=== PATIENT | male | born 1965 | race Caucasian/White ===

== ENCOUNTER 2018-03-13 12:10 | Inpatient (IN) | payer OTHER ==
[2018-03-13 12:20] VITALS: BMI 22.8
--- NOTE | 2018-03-13 15:02 | HP ---
CIWA Score Nausea/Vomitin Muscle Tremors: 3 Anxiety: 3 Agitation: 2 Paroxysmal Sweats: No Perspiration Orientation: 1-Uncertain about Date Tacttile Disturbances: 1-Very Mild Itch/Numbness Auditory Disturbances: 2-Mild Harshness/Frighten Visual Disturbances: 0-None Headache: 0-None Present CIWA-Ar Total Score: 15 - Admission Criteria [facility]ASAS Guidelines: Admission for Medically Managed Detox: Requires at least one of the followin. CIWA greater than 12 2. Seizures within the past 24 hours 3. Delirium tremens within the past 24 hours 4. Hallucinations within the past 24 hours 5. Acute intervention needed for co occurring medical disorder 6. Acute intervention needed for co occurring psychiatric disorder 7. Severe withdrawal that cannot be handled at a lower level of care (continued vomiting, continued diarrhea, abnormal vital signs) requiring intravenous medication and/or fluids 8. Admission ROS [facility] - [facility] Chief Complaint: PATIENT PRESENTS WITH ETOH WITHDRAWAL SX. Allergies/Adverse Reactions: Allergies Allergy/AdvReac Type Severity Reaction Status Date / Time No Known Allergies Allergy Verified 03/13/18 14:33 History of Present Illness: PATIENT PRESENTS WITH ETOH WITHDRAWAL SX. PATIENT HAS H/O OF SNIFFING COCAINE AND HEROIN USE BUT STATES HE DETOXED HIMSELF 5 DAYS AGO ON HIS OWN. UDS +BZO, PATIENT ISTOP NEGATIVE FOR RECENT CONTROLLED SUBSTANCES. PATIENT DENIES ANY RECENT DETOX ADMISSIONS/ER VISITS. STATES BZO MAY HAVE BEEN IN HEROIN. PATIENT DRINKING AT AGE 19. DRINKS (10) 12 OUNCE BEERS DAILY, LAST DRINK WAS EARLY THIS AM. STATES HE DRINKS BEER IN THE MORNING TO STEADY HIS NERVES. + H/O BLACKOUTS , FALLS AND SEIZURES. LAST SEIZURE YEARS AGO. PMH INCLUDES BIPOLAR DISORDER, SCHIZOPHRENIA, AND ASTHMA. DENIES SI/HI AND SUICIDE ATTEMPTS. Exam Limitations: No Limitations - Ebola screening Have you traveled outside of the country in the last 21 days: No Have you had contact with anyone from an Ebola affected area: No Have you been sick,other than usual withdrawal symptoms: No Do you have a fever: No - Review of Systems Constitutional: Night Sweats, Changes in sleep, Unexplained wgt Loss EENT: reports: No Symptoms Reported Respiratory: reports: No Symptoms reported Cardiac: reports: No Symptoms Reported GI: reports: Diarrhea, Nausea, Poor Fluid Intake, Abdominal cramping : reports: No Symptoms Reported Musculoskeletal: reports: Back Pain, Muscle Pain Integumentary: reports: Sweating Neuro: reports: Numbness, Seizure (LAST SEIZURE YEARS AGO), Tingling, Tremors Endocrine: reports: No Symptoms Reported Hematology: reports: No Symptoms Reported Psychiatric: reports: Anxious (FORGETFUL WITH DATE), Depressed Patient History - Patient Medical History Hx Anemia: No Hx Asthma: Yes Hx Chronic Obstructive Pulmonary Disease (COPD): No Hx Cancer: No Hx Cardiac Disorders: No Hx Congestive Heart Failure: No Hx Hypertension: No Hx Hypercholesterolemia: No Hx Pacemaker: No HX Cerebrovascular Accident: No Hx Seizures: Yes (r/t head trauma-last episode was in 2016) Hx Dementia: No Hx Diabetes: No Hx Gastrointestinal Disorders: No Hx Liver Disease: No Hx Genitourinary Disorders: No Hx Sexually Transmitted Disorders: Yes (gonorrhea in 1984) Hx Renal Disease (ESRD): No Hx Thyroid Disease: No Hx Human Immunodeficiency Virus (HIV): No Hx Hepatitis C: No Hx Depression: Yes Hx Suicide Attempt: No Hx Bipolar Disorder: Yes Hx Schizophrenia: Yes (paranoid schizophrenia) - Patient Surgical History Past Surgical History: Yes Hx Neurologic Surgery: No Hx Cataract Extraction: No Hx Cardiac Surgery: No Hx Lung Surgery: No Hx Breast Surgery: No Hx Breast Biopsy: No Hx Abdominal Surgery: No Hx Appendectomy: No Hx Cholecystectomy: No Hx Genitourinary Surgery: No Hx Orthopedic Surgery: Yes (fx, left elbow at age 10) Anesthesia Reaction: Yes - PPD History Previous Implant?: Yes Documented Results: Negative w/o proof PPD to be Administered?: Yes - Smoking Cessation Smoking history: Never smoked Have you smoked in the past 12 months: No Hx Chewing Tobacco Use: No Initiated information on smoking cessation: No - Substance & Tx. History Hx Alcohol Use: Yes Hx Substance Use: Yes Substance Use Type: Alcohol, Cocaine Hx Substance Use Treatment: Yes - Substances Abused Crack Route: Smoking Frequency: Daily Amount used: $50 Age of first use: 19 Date of Last Use: 03/11/18 Heroin Route: Inhalation Frequency: 3-6 times per week Amount used: 2-3 bags Age of first use: 19 Date of Last Use: 03/10/18 Alcohol-beer Route: Oral Frequency: Daily Amount used: 4 (40 OZ.)/2 pts. (whisky) Age of first use: 19 Date of Last Use: 03/11/18 Family Disease History - Family Disease History Family History: Denies Admission Physical Exam [facility] - Vital Signs Vital Signs: Vital Signs - 24 hr 03/13/18 12:17 Temperature 97.4 F L Pulse Rate 68 Respiratory 20 Rate Blood Pressure 116/70 - Physical General Appearance: Yes: No Apparent Distress, Appropriately Dressed, Tremorous , Sweating, Anxious HEENTM: Yes: EOMI, Hearing grossly Normal, Normocephalic, Normal Voice, BROOKE, Pharynx Normal Respiratory: Yes: Chest Non-Tender, Lungs Clear, Normal Breath Sounds, No Respiratory Distress, No Accessory Muscle Use Neck: Yes: No masses,lesions,Nodules, Supple, Trachea in good position Breast: Yes: Breast Exam Deferred Cardiology: Yes: Regular Rhythm, Regular Rate, S1, S2 Abdominal: Yes: Normal Bowel Sounds, Non Tender, Soft Genitourinary: Yes: Within Normal Limits Back: Yes: Muscle Spasm Musculoskeletal: Yes: full range of Motion, Back pain Extremities: Yes: Normal Range of Motion, Non-Tender, Tremors Neurological: Yes: pattern room attendant II-XII NML intact, Alert, Motor Strength 5/5, Normal Response, Depressed Affect Integumentary: Yes: Normal Color, Warm, Moist Lymphatic: Yes: Within Normal Limits - Diagnostic (1) Alcohol dependence with uncomplicated withdrawal Current Visit: Yes Status: Acute (2) Heroin use disorder, mild Current Visit: Yes Status: Chronic (3) Cocaine use Current Visit: Yes Status: Chronic (4) History of bipolar disorder Current Visit: Yes Status: Suspected Cleared for Admission [facility] - Detox or Rehab [facility] Level of Care: Medically Managed Detox Regimen/Protocol: Librium [facility] Breath Alcohol Content Breath Alcohol Content: 0 Urine Drug Screen - Results Drug Screen Negative: No Urine Drug Screen Results: BZO-Benzodiazepines
[2018-03-13] MEDS ORDERED: MENTHOL/PHENOL 1 EACH UD MM PRN (15:13)
[2018-03-13] MEDS ORDERED: MAGNESIUM CITRATE 300 ML BOTTLE PO PRN (15:13)
[2018-03-13] MEDS ORDERED: LOPERAMIDE HCL 2 MG CAPSULE PO PRN (15:13)
[2018-03-13] MEDS ORDERED: guaiFENesin/D-METHORPHAN HB 10 ML UNIT-DOSE CUPS PO PRN (15:13)
[2018-03-13] MEDS ORDERED: MAGNESIUM HYDROX 2400MG/30ML ORAL SUSPENSION 30 ML CUP PO PRN (15:13)
[2018-03-13] MEDS ORDERED: ACETAMINOPHEN 325 MG TABLET (FP) PO PRN (15:13)
[2018-03-13] MEDS ORDERED: P-EPHED 60MG/TRIPROLIDI 2.5MG TABLET PO PRN (15:13)
[2018-03-13] MEDS ORDERED: IBUPROFEN 400 MG TABLET (FP) PO PRN (15:13)
[2018-03-13] MEDS ORDERED: MAG HYDROX/AL HYDROX/SIMETH 30 ML UNIT-DOSE CUP PO PRN (15:13)
[2018-03-13] MEDS ORDERED: hydrOXYzine PAMOATE 50 MG CAPSULE (FP) PO PRN (15:13)
[2018-03-13] MEDS ORDERED: chlordiazePOXIDE HCL 25 MG CAPSULE PO PRN (15:16)
[2018-03-13] MEDS: chlordiazePOXIDE HCL 25 MG CAPSULE PO SCH ×2 (17:44→22:18)
[2018-03-13] MEDS: BACITRACIN 0.9 GM PACKET TP SCH (19:04)
[2018-03-13] MEDS: THIAMINE HCL 100 MG TABLET (FP) PO SCH (22:18)
[2018-03-13] MEDS: MELATONIN 5 MG TABLETS PO PRN (22:18)
[2018-03-14] MEDS: chlordiazePOXIDE HCL 25 MG CAPSULE PO SCH ×4 (05:27→22:12)
[2018-03-14] MEDS: PRENATAL VITAMINS W/ FOLIC ACID TABLET (FP) PO SCH (10:05)
[2018-03-14] MEDS: BACITRACIN 0.9 GM PACKET TP SCH (10:05)
--- NOTE | 2018-03-14 10:06 | EKG ---
Test Reason : Blood Pressure : / mmHG Vent. Rate : 061 BPM Atrial Rate : 061 BPM P-R Int : 138 ms QRS Dur : 096 ms QT Int : 416 ms P-R-T Axes : 064 058 047 degrees QTc Int : 418 ms NORMAL SINUS RHYTHM VOLTAGE CRITERIA FOR LEFT VENTRICULAR HYPERTROPHY ABNORMAL ECG NO PREVIOUS ECGS AVAILABLE Confirmed by Rivas Lucas MD ([id number]) on 03/14/2018 10:06:16 AM Referred By: Confirmed By:Rivas Lucas MD
[2018-03-14 10:22] LABS: HEMATOCRIT 41.4 % (35.4-49); HEMOGLOBIN 13.3 GM/dL (11.7-16.9); MCH 28.7 pg (25.7-33.7); MCHC 32.2 g/dl (32.0-35.9); MEAN CELL VOLUME 89.2 fl (80-96); MEAN PLT VOLUME 8.5 fl (7.5-11.1); PLATELET COUNT 484 K/MM3 (134-434); RBC 4.65 M/mm3 (4.00-5.60); RDW 14.3 % (11.9-15.9); WHITE BLOOD COUNT 10.3 K/mm3 (4.0-10.0)
[2018-03-14 10:26] LABS: ALBUMIN 3.6 g/dl (3.4-5.0); ALK PHOS 68 U/L (45-117); ANION GAP 8 MMOL/L (8-16); BILIRUBIN,TOTAL 0.2 mg/dL (0.2-1); BLOOD UREA NITROGEN 16 mg/dL (7-18); CALCIUM 8.8 mg/dL (8.5-10.1); CHLORIDE 104 mmol/L (98-107); CO2 25 mmol/L (21-32); GLUCOSE,RANDOM 93 mg/dL (74-106); POTASSIUM 4.4 mmol/L (3.5-5.1); SGOT/AST 19 U/L (15-37); SGPT/ALT 27 U/L (13-61); SODIUM 137 mmol/L (136-145); TOT PROT 7.3 g/dl (6.4-8.2)
--- NOTE | 2018-03-14 13:33 | PN ---
S CIWA - CIWA Score Nausea/Vomitin-No Nausea/No Vomiting Muscle Tremors: None Anxiety: 3 Agitation: 3 Paroxysmal Sweats: No Perspiration Orientation: 0-Oriented Tacttile Disturbances: 2-Mild Itch/Numbness/Burn Auditory Disturbances: 0-None Visual Disturbances: 0-None Headache: 2-Mild CIWA-Ar Total Score: 10 [facility] Progress Note (SOAP) Subjective: PATIENT C/O ANXIETY, RESTLESSNESS, ITCHING/BURNING TO FEET AND INTERMITTENT HEADACHE. Objective: 03/14/18 13:32 Vital Signs Temperature 96.1 F L 03/14/18 09:27 Pulse Rate 85 03/14/18 09:27 Respiratory Rate 16 03/14/18 09:27 Blood Pressure 102/67 03/14/18 09:27 O2 Sat by Pulse Oximetry (%) Laboratory Tests 03/14/18 03/14/18 03/14/18 05:45 05:45 05:45 WBC 10.3 H RBC 4.65 Hgb 13.3 Hct 41.4 MCV 89.2 MCH 28.7 MCHC 32.2 RDW 14.3 Plt Count 484 H MPV 8.5 Sodium 137 Potassium 4.4 Chloride 104 Carbon Dioxide 25 Anion Gap 8 BUN 16 Creatinine 1.0 Creat Clearance w eGFR > 60 Random Glucose 93 Calcium 8.8 Total Bilirubin 0.2 AST 19 ALT 27 Alkaline Phosphatase 68 Total Protein 7.3 Albumin 3.6 RPR Titer HIV 1&2 Antibody Screen Negative HIV P24 Antigen Negative 03/14/18 05:45 WBC RBC Hgb Hct MCV MCH MCHC RDW Plt Count MPV Sodium Potassium Chloride Carbon Dioxide Anion Gap BUN Creatinine Creat Clearance w eGFR Random Glucose Calcium Total Bilirubin AST ALT Alkaline Phosphatase Total Protein Albumin RPR Titer Nonreactive HIV 1&2 Antibody Screen HIV P24 Antigen PE: ALERT AND ORIENTED X 3 SKIN WARM AND DRY EXT FULL ROM, NO VISIBLE TREMORS AMB AD ZHANE NEURO CN [id number] GROSSLY INTACT Assessment: 03/14/18 13:33 WITHDRAWAL SX Plan: CONTINUE DETOX ENCOURAGE ORAL FLUIDS CONTINUE TO MONITOR CLINICALLY
--- NOTE | 2018-03-14 15:26 | CONSULT ---
[facility] Psychiatric Consult - Data Date of interview: 03/14/18 Admission source: [facility] Identifying data: Readmission to [facility] for this 52 y/o male undergoing detoxification treatment on [address] (alcohol, cocaine, heroin). Patient is single, no children, homeless, unemployed and supported on welfare ( SSI discontinued). Substance Abuse History: Discussed with the patient. Mr Dailey confirms current [facility] report as follows : Smoking history: Never smoked. Have you smoked in the past 12 months: No. Hx Chewing Tobacco Use: No. Initiated information on smoking cessation: No. - Substance & Tx. History. Hx Alcohol Use: Yes. Hx Substance Use: Yes. Substance Use Type: Alcohol, Cocaine. Hx Substance Use Treatment: Yes. - Substances Abused. Crack. Route: Smoking. Frequency: Daily. Amount used: $50. Age of first use: 19. Date of Last Use: 03/11/18. * * Heroin. Route: Inhalation. Frequency: 3-6 times per week. Amount used: 2-3 bags. Age of first use: 19. Date of Last Use: 03/10/18. Alcohol-beer. Route: Oral. Frequency: Daily. Amount used: 4 (40 OZ.)/2 pts. (whisky). Age of first use: 19. Date of Last Use: 03/11/18 Medical History: Remarkable for bronchial asthma, seizure episode (post head trauma) in 2016, orthosurgery for injury to eft elbow (age 10) and a history of treatment for gonorrhea. Psychiatric History: Patient admits to a history of multiple psychiatric hospitalizations ([facility], [facility]). Diagnosed with Schizophrenia. History of treatment with ziprazidone.Mr Dailey reports no current contact with psychiatrists for OPD care. Last saw a psychiatrist five years ago. " I get geodon from my medical doctor or when I am admitted to the hospital ". Patient denies history of suicide atttempts. Physical/Sexual Abuse/Trauma History: Patient denies. Additional Comment: Urine Drug Screen Results: BZO-Benzodiazepines. Noted. Mental Status Exam - Mental Status Exam Alert and Oriented to: Time, Place, Person Cognitive Function: Good Patient Appearance: Well Groomed (wearing a double metallic earring (left ear)) Mood: Nervous, Anxious Affect: Normal Range Patient Behavior: Fatigued, Talkative, Cooperative Speech Pattern: Clear, Appropriate Voice Loudness: Normal Thought Process: Goal Oriented Thought Disorder: Not Present Hallucinations: Denies Suicidal Ideation: Denies Homicidal Ideation: Denies Insight/Judgement: Poor Sleep: Well Appetite: Good Muscle strength/Tone: Normal Gait/Station: Normal Psychiatric Findings - Problem List ([place] 1, 2,3) (1) Alcohol dependence with uncomplicated withdrawal Current Visit: Yes Status: Acute (2) Cocaine dependence Current Visit: Yes Status: Chronic (3) Heroin abuse Current Visit: Yes Status: Chronic (4) Substance induced mood disorder Current Visit: Yes Status: Chronic (5) Schizoaffective disorder Current Visit: Yes Status: Suspected (6) Non-compliant patient Current Visit: Yes Status: Chronic - Initial Treatment Plan Initial Treatment Plan: Psychoeducation. Sleep hygiene. Detoxification. Motivational rounds. Social work team will address issue of restauration of SSI benefits. Support and reassurance. Resume geodon 20 mg po hs (patient's specific request). Side effects/benefits are discussed with the patient. Consent (verbal) granted to MD. Vora.
[2018-03-14] MEDS: MELATONIN 5 MG TABLETS PO PRN (22:12)
[2018-03-14] MEDS: THIAMINE HCL 100 MG TABLET (FP) PO SCH (22:12)
[2018-03-15] MEDS: chlordiazePOXIDE HCL 25 MG CAPSULE PO SCH ×2 (06:17→11:50)
--- NOTE | 2018-03-15 10:58 | PN ---
S CIWA - CIWA Score Nausea/Vomitin-Mild Nausea/No Vomiting Muscle Tremors: 3 Anxiety: 1-Mildly Anxious Agitation: 2 Paroxysmal Sweats: 1-Minimal Palms Moist Orientation: 1-Uncertain about Date Tacttile Disturbances: 0-None Auditory Disturbances: 0-None Visual Disturbances: 0-None Headache: 1-Very Mild CIWA-Ar Total Score: 10 S Progress Note (SOAP) Subjective: nausea tremor sweat restlessness Objective: 03/15/18 11:35 Vital Signs Temperature 96.6 F L 03/15/18 09:10 Pulse Rate 93 H 03/15/18 09:10 Respiratory Rate 13 03/15/18 09:10 Blood Pressure 122/82 03/15/18 09:10 O2 Sat by Pulse Oximetry (%) Laboratory Last Values WBC 10.3 K/mm3 (4.0-10.0) H 03/14/18 05:45 RBC 4.65 M/mm3 (4.00-5.60) 03/14/18 05:45 Hgb 13.3 GM/dL (11.7-16.9) 03/14/18 05:45 Hct 41.4 % (35.4-49) 03/14/18 05:45 MCV 89.2 fl (80-96) 03/14/18 05:45 MCH 28.7 pg (25.7-33.7) 03/14/18 05:45 MCHC 32.2 g/dl (32.0-35.9) 03/14/18 05:45 RDW 14.3 % (11.9-15.9) 03/14/18 05:45 Plt Count 484 K/MM3 (134-434) H 03/14/18 05:45 MPV 8.5 fl (7.5-11.1) 03/14/18 05:45 Sodium 137 mmol/L (136-145) 03/14/18 05:45 Potassium 4.4 mmol/L (3.5-5.1) 03/14/18 05:45 Chloride 104 mmol/L (98-107) 03/14/18 05:45 Carbon Dioxide 25 mmol/L (21-32) 03/14/18 05:45 Anion Gap 8 MMOL/L (8-16) 03/14/18 05:45 BUN 16 mg/dL (7-18) 03/14/18 05:45 Creatinine 1.0 mg/dL (0.55-1.3) 03/14/18 05:45 Creat Clearance w eGFR > 60 (>60) 03/14/18 05:45 Random Glucose 93 mg/dL (74-106) 03/14/18 05:45 Calcium 8.8 mg/dL (8.5-10.1) 03/14/18 05:45 Total Bilirubin 0.2 mg/dL (0.2-1) 03/14/18 05:45 AST 19 U/L (15-37) 03/14/18 05:45 ALT 27 U/L (13-61) 03/14/18 05:45 Alkaline Phosphatase 68 U/L (45-117) 03/14/18 05:45 Total Protein 7.3 g/dl (6.4-8.2) 03/14/18 05:45 Albumin 3.6 g/dl (3.4-5.0) 03/14/18 05:45 RPR Titer Nonreactive (NONREACTIVE) 03/14/18 05:45 HIV 1&2 Antibody Screen Negative 03/14/18 05:45 HIV P24 Antigen Negative 03/14/18 05:45 lab noted Assessment: 03/15/18 10:57 withdrawal sx alcohol induced nausea Plan: continue detox zofran 4 mg sl x 1 discontinue motrin begin aspirin
[2018-03-15] MEDS ORDERED: ONDANSETRON *ODT* 4 MG TABLET SL ONE (11:30)
[2018-03-15] MEDS: BACITRACIN 0.9 GM PACKET TP SCH (12:13)
[2018-03-15] MEDS: PRENATAL VITAMINS W/ FOLIC ACID TABLET (FP) PO SCH (12:13)
[2018-03-15] MEDS: ZIPRASIDONE 20 MG CAPSULE PO SCH (12:15)
[2018-03-15] MEDS: ASPIRIN 81 MG CHEWABLE TABLETS PO SCH (12:15)
[2018-03-15] MEDS: chlordiazePOXIDE 5 MG CAPSULE PO SCH ×2 (17:12→22:22)
[2018-03-15] MEDS: MELATONIN 5 MG TABLETS PO PRN (22:22)
[2018-03-15] MEDS: THIAMINE HCL 100 MG TABLET (FP) PO SCH (22:22)
[2018-03-16] MEDS: chlordiazePOXIDE 5 MG CAPSULE PO SCH ×2 (05:39→10:27)
[2018-03-16] MEDS: BACITRACIN 0.9 GM PACKET TP SCH (10:26)
[2018-03-16] MEDS: PRENATAL VITAMINS W/ FOLIC ACID TABLET (FP) PO SCH (10:26)
[2018-03-16] MEDS: ASPIRIN 81 MG CHEWABLE TABLETS PO SCH (10:26)
[2018-03-16] MEDS: ZIPRASIDONE 20 MG CAPSULE PO SCH (10:26)
--- NOTE | 2018-03-16 15:21 | PN ---
[facility] Progress Note (SOAP) Subjective: feeling better less sweat little tremor mild gi distress calmly discuss aftercare with staff Objective: 03/16/18 15:20 Vital Signs Temperature 98.3 F 03/16/18 13:10 Pulse Rate 101 H 03/16/18 13:10 Respiratory Rate 18 03/16/18 13:10 Blood Pressure 128/78 03/16/18 13:10 O2 Sat by Pulse Oximetry (%) Laboratory Last Values WBC 10.3 K/mm3 (4.0-10.0) H 03/14/18 05:45 RBC 4.65 M/mm3 (4.00-5.60) 03/14/18 05:45 Hgb 13.3 GM/dL (11.7-16.9) 03/14/18 05:45 Hct 41.4 % (35.4-49) 03/14/18 05:45 MCV 89.2 fl (80-96) 03/14/18 05:45 MCH 28.7 pg (25.7-33.7) 03/14/18 05:45 MCHC 32.2 g/dl (32.0-35.9) 03/14/18 05:45 RDW 14.3 % (11.9-15.9) 03/14/18 05:45 Plt Count 484 K/MM3 (134-434) H 03/14/18 05:45 MPV 8.5 fl (7.5-11.1) 03/14/18 05:45 Sodium 137 mmol/L (136-145) 03/14/18 05:45 Potassium 4.4 mmol/L (3.5-5.1) 03/14/18 05:45 Chloride 104 mmol/L (98-107) 03/14/18 05:45 Carbon Dioxide 25 mmol/L (21-32) 03/14/18 05:45 Anion Gap 8 MMOL/L (8-16) 03/14/18 05:45 BUN 16 mg/dL (7-18) 03/14/18 05:45 Creatinine 1.0 mg/dL (0.55-1.3) 03/14/18 05:45 Creat Clearance w eGFR > 60 (>60) 03/14/18 05:45 Random Glucose 93 mg/dL (74-106) 03/14/18 05:45 Calcium 8.8 mg/dL (8.5-10.1) 03/14/18 05:45 Total Bilirubin 0.2 mg/dL (0.2-1) 03/14/18 05:45 AST 19 U/L (15-37) 03/14/18 05:45 ALT 27 U/L (13-61) 03/14/18 05:45 Alkaline Phosphatase 68 U/L (45-117) 03/14/18 05:45 Total Protein 7.3 g/dl (6.4-8.2) 03/14/18 05:45 Albumin 3.6 g/dl (3.4-5.0) 03/14/18 05:45 RPR Titer Nonreactive (NONREACTIVE) 03/14/18 05:45 HIV 1&2 Antibody Screen Negative 03/14/18 05:45 HIV P24 Antigen Negative 03/14/18 05:45 lab noted Assessment: 03/16/18 15:20 mild withdrawal sx Plan: continue detox
[2018-03-16] MEDS: chlordiazePOXIDE HCL 10 MG CAPSULE PO SCH ×2 (17:34→22:03)
[2018-03-16] MEDS: MELATONIN 5 MG TABLETS PO PRN (22:03)
[2018-03-16] MEDS: THIAMINE HCL 100 MG TABLET (FP) PO SCH (22:03)
[2018-03-17] MEDS: chlordiazePOXIDE HCL 10 MG CAPSULE PO SCH ×2 (05:55→10:13)
[2018-03-17 06:31] VITALS: BP 127/80; PULSE 84; TEMP 97.8
[2018-03-17] MEDS: ASPIRIN 81 MG CHEWABLE TABLETS PO SCH (09:50)
[2018-03-17] MEDS: PRENATAL VITAMINS W/ FOLIC ACID TABLET (FP) PO SCH (09:51)
[2018-03-17] MEDS: ZIPRASIDONE 20 MG CAPSULE PO SCH (09:53)
[2018-03-17] MEDS: BACITRACIN 0.9 GM PACKET TP SCH (09:53)
--- NOTE | 2018-03-17 15:17 | DS ---
[facility] Detox Discharge Summary Admission Date: 03/13/18 Discharge Date: 03/17/18 - History Present History: Alcohol Dependence, Cocaine Dependence Pertinent Past History: PATIENT PRESENTED WITH ETOH WITHDRAWAL SX. Pt completed alcohol detox protocol. Pt is discharged and will follow up in an outpt treatment program. Pt does not need any medications at discharge - Physical Exam Results Vital Signs: Vital Signs Temperature 97.8 F 03/17/18 06:31 Pulse Rate 84 03/17/18 06:31 Respiratory Rate 18 03/17/18 06:31 Blood Pressure 127/80 03/17/18 06:31 O2 Sat by Pulse Oximetry (%) - Treatment Hospital Course: Detox Protocol Followed, Detoxed Safely, Responded well, Discharged Condition Good - Medication Discharge Medications: Ambulatory Orders Ziprasidone [Geodon -] 20 mg PO DAILY 03/13/18 - AMA Did Patient Leave Against Medical Advice: No
== END 2018-03-17 10:49 | disposition home or self-care (01) | DRG 773 ==
LOC: YASAS 12:10 → Y3N 15:41
PROC: HZ2ZZZZ Detoxification Services for Substance Abuse Treatment (ICD-10-PCS; principal; 2018-03-13)
DX: F10.230 Alcohol dependence with withdrawal, uncomplicated (principal); F14.20 Cocaine dependence, uncomplicated; F11.10 Opioid abuse, uncomplicated; F19.24 Other psychoactive substance dependence with psychoactive substance-induced mood disorder; F25.9 Schizoaffective disorder, unspecified; J45.909 Unspecified asthma, uncomplicated; Z87.438 Personal history of other diseases of male genital organs; Z86.69 Personal history of other diseases of the nervous system and sense organs; Z91.19 Patient's noncompliance with other medical treatment and regimen
CPT/HCPCS: 36415; 80053; 85027; 86593; 87389; 93005; 93010; Q0162

== ENCOUNTER 2021-01-13 10:21 | Inpatient (IN) | payer OTHER ==
[2021-01-13] MEDS ORDERED: cloNIDine HCL 0.1 MG TABLET PO PRN (10:59)
[2021-01-13] MEDS ORDERED: ACETAMINOPHEN 325 MG TABLET (FP) PO PRN ×2 (10:59)
[2021-01-13] MEDS ORDERED: MAGNESIUM HYDROX 2400MG/30ML ORAL SUSPENSION 30 ML CUP PO PRN (10:59)
[2021-01-13] MEDS ORDERED: BISMUTH SUBSALICYLATE 524 MG/30 ML PO PRN (10:59)
[2021-01-13] MEDS ORDERED: IBUPROFEN 400 MG TABLET (FP) PO PRN (10:59)
[2021-01-13] MEDS ORDERED: MAGNESIUM CITRATE 300 ML BOTTLE PO PRN (10:59)
[2021-01-13] MEDS ORDERED: MENTHOL/PHENOL 1 EACH UD MM PRN (10:59)
[2021-01-13] MEDS ORDERED: MAG HYDROX/AL HYDROX/SIMETH 30 ML UNIT-DOSE CUP PO PRN (10:59)
[2021-01-13] MEDS ORDERED: ONDANSETRON *ODT* 4 MG TABLET SL PRN (10:59)
[2021-01-13] MEDS ORDERED: methaDONE HCL 10 MG TABLET (FOR DETOX USE ONLY) PO ONE ×2 (11:30→17:00)
[2021-01-13 11:44] VITALS: BMI 24.2
[2021-01-13 14:49] LABS: HEMATOCRIT 42.2 % (35.4-49); HEMOGLOBIN 14.2 GM/dL (11.7-16.9); MCH 29.6 pg (25.7-33.7); MCHC 33.7 g/dl (32.0-35.9); MEAN CELL VOLUME 87.9 fl (80-96); MEAN PLT VOLUME 8.6 fl (7.5-11.1); PLATELET COUNT 295 10^3/uL (134-434); RDW 14.4 % (11.9-15.9); WHITE BLOOD COUNT 4.5 K/mm3 (4.0-10.0)
[2021-01-13 14:59] LABS: ALBUMIN 3.6 g/dl (3.4-5.0); BLOOD UREA NITROGEN 16.9 mg/dL (7-18)
[2021-01-13 15:04] LABS: BILIRUBIN,TOTAL 0.6 mg/dL (0.2-1); TOT PROT 6.8 g/dl (6.4-8.2)
[2021-01-13] MEDS ORDERED: methaDONE HCL 10 MG TABLET PO SCH (15:30)
[2021-01-13] MEDS: hydrOXYzine PAMOATE 25 MG CAPSULE (FP) PO SCH ×3 (15:59→22:19)
[2021-01-13] MEDS: PRENATAL VITAMINS W/ FOLIC ACID TABLET (FP) PO SCH (16:00)
[2021-01-13] MEDS: MELATONIN 5 MG TABLETS PO SCH (22:19)
[2021-01-13] MEDS: METHOCARBAMOL 500 MG TABLET PO PRN (22:19)
[2021-01-13] MEDS: THIAMINE HCL 100 MG TABLET (FP) PO SCH (22:19)
[2021-01-14] MEDS ORDERED: methaDONE HCL 10 MG TABLET (FOR DETOX USE ONLY) PO ONE (10:00)
[2021-01-14] MEDS: PRENATAL VITAMINS W/ FOLIC ACID TABLET (FP) PO SCH (10:25)
[2021-01-14] MEDS: MELATONIN 5 MG TABLETS PO SCH (22:24)
[2021-01-14] MEDS: THIAMINE HCL 100 MG TABLET (FP) PO SCH (22:24)
[2021-01-15] MEDS ORDERED: methaDONE HCL 10 MG TABLET (FOR DETOX USE ONLY) PO ONE ×2 (10:00)
[2021-01-15] MEDS: PRENATAL VITAMINS W/ FOLIC ACID TABLET (FP) PO SCH (10:10)
[2021-01-15] MEDS: METHOCARBAMOL 500 MG TABLET PO PRN (18:04)
[2021-01-15] MEDS: MELATONIN 5 MG TABLETS PO SCH (22:11)
[2021-01-15] MEDS: THIAMINE HCL 100 MG TABLET (FP) PO SCH (22:11)
[2021-01-16] MEDS ORDERED: methaDONE HCL 10 MG TABLET (FOR DETOX USE ONLY) ONE (09:43)
[2021-01-16] MEDS: PRENATAL VITAMINS W/ FOLIC ACID TABLET (FP) PO SCH (10:14)
[2021-01-16] MEDS: METHOCARBAMOL 500 MG TABLET PO PRN ×2 (10:14→22:09)
[2021-01-16] MEDS: MELATONIN 5 MG TABLETS PO SCH (22:09)
[2021-01-16] MEDS: THIAMINE HCL 100 MG TABLET (FP) PO SCH (22:09)
[2021-01-17] MEDS ORDERED: methaDONE HCL 10 MG TABLET (FOR DETOX USE ONLY) PO ONE (10:00)
[2021-01-17] MEDS: PRENATAL VITAMINS W/ FOLIC ACID TABLET (FP) PO SCH (10:14)
[2021-01-17] MEDS: THIAMINE HCL 100 MG TABLET (FP) PO SCH (22:05)
[2021-01-17] MEDS: MELATONIN 5 MG TABLETS PO SCH (22:05)
[2021-01-17] MEDS: METHOCARBAMOL 500 MG TABLET PO PRN (22:06)
[2021-01-18 06:37] VITALS: PULSE 76
[2021-01-18 09:10] VITALS: BP 138/86; TEMP 96.9
== END 2021-01-18 09:10 | disposition home or self-care (01) | DRG 773 ==
LOC: YASAS 10:21 → Y3N 12:57
PROVIDERS: ADMIT Allergy & Immunology; ATTEND Allergy & Immunology
PROC: HZ2ZZZZ Detoxification Services for Substance Abuse Treatment (ICD-10-PCS; principal; 2021-01-13)
DX: F11.23 Opioid dependence with withdrawal (principal); F10.230 Alcohol dependence with withdrawal, uncomplicated; F14.20 Cocaine dependence, uncomplicated; F20.0 Paranoid schizophrenia; F19.282 Other psychoactive substance dependence with psychoactive substance-induced sleep disorder; F90.9 Attention-deficit hyperactivity disorder, unspecified type; J45.909 Unspecified asthma, uncomplicated; R56.1 Post traumatic seizures; Z87.828 Personal history of other (healed) physical injury and trauma; Z86.19 Personal history of other infectious and parasitic diseases; Z91.410 Personal history of adult physical and sexual abuse; Z59.00 Homelessness unspecified; Z56.0 Unemployment, unspecified
CPT/HCPCS: 36415; 80053; 82947; 85027; 86780; 93005; 93010; C9803; U0003; U0005

== ENCOUNTER 2023-08-29 10:48 | Inpatient (IN) | payer OTHER ==
[2023-08-29 12:07] VITALS: BMI 25.8
[2023-08-29] MEDS ORDERED: ONDANSETRON *ODT* 4 MG TABLET SL PRN (12:25)
[2023-08-29] MEDS ORDERED: MAG HYDROX/AL HYDROX/SIMETH 30 ML UNIT-DOSE CUP PO PRN (12:25)
[2023-08-29] MEDS ORDERED: BISMUTH SUBSALICYLATE 262 MG/15 ML BTL PO PRN (12:25)
[2023-08-29] MEDS ORDERED: hydrOXYzine PAMOATE 25 MG CAPSULE (FP) PO PRN (12:25)
[2023-08-29] MEDS ORDERED: NICOTINE POLACRILEX 2 MG LOZENGE BC PRN (12:25)
[2023-08-29] MEDS ORDERED: POLYETHYLENE GLYCOL (HEALTHYLAX) 3350 17 GM PACKET PO PRN (12:25)
[2023-08-29] MEDS ORDERED: METHOCARBAMOL 500 MG TABLET PO PRN (12:25)
[2023-08-29] MEDS ORDERED: BENZOCAINE/MENTHOL (CHLORASEPTIC ) LOZENGE MM PRN (12:25)
[2023-08-29] MEDS ORDERED: LOPERAMIDE HCL 2 MG CAPSULE PO PRN (12:25)
[2023-08-29] MEDS ORDERED: NALOXONE (NARCAN) HCL 4 MG/0.1 ML SPRAY NS PRN (12:25)
[2023-08-29] MEDS ORDERED: MAGNESIUM HYDROX 2400MG/30ML ORAL SUSPENSION 30 ML CUP PO PRN (12:25)
[2023-08-29] MEDS ORDERED: ACETAMINOPHEN 325 MG TABLET (FP) PO PRN (12:25)
[2023-08-29] MEDS ORDERED: guaiFENesin 600 MG TABLET.ER (FP) PO PRN (12:25)
[2023-08-29] MEDS ORDERED: NICOTINE POLACRILEX 2 MG GUM BUC PRN (12:25)
[2023-08-29] MEDS ORDERED: P-EPHED 60MG/TRIPROLIDI 2.5MG TABLET PO PRN (12:25)
[2023-08-29] MEDS ORDERED: IBUPROFEN 400 MG TABLET (FP) PO PRN (12:25)
[2023-08-29] MEDS ORDERED: DICYCLOMINE HCL 10 MG CAPSULE PO PRN (12:25)
[2023-08-29] MEDS ORDERED: NALOXONE HCL 0.4 MG/ML VIAL IM PRN (12:25)
[2023-08-29] MEDS ORDERED: IBUPROFEN 600 MG TABLET (FP) PO PRN (12:25)
[2023-08-29] MEDS ORDERED: BENZONATATE 200 MG CAPSULE PO PRN (12:25)
[2023-08-29] MEDS: THIAMINE 100 MG TABLET PO SCH (21:47)
[2023-08-29] MEDS: MELATONIN 5 MG TABLETS PO SCH (21:48)
[2023-08-30] MEDS: PRENATAL VITAMINS W/ FOLIC ACID TABLET (FP) PO SCH (09:45)
[2023-08-30] MEDS ORDERED: ALBUTEROL SO4 HFA INHALER IH PRN ×2 (10:34→12:57)
[2023-08-30] MEDS: methaDONE HCL 10 MG TABLET (FOR DETOX USE ONLY) PO ONE (11:15)
[2023-08-30] MEDS: cloNIDine HCL 0.1 MG TABLET PO PRN (11:19)
[2023-08-30] MEDS: BICTEGRAV/EMTRICIT/TENOFOV (BIKTARVY) 50-200-25 MG TABLET PO SCH (11:19)
[2023-08-30] MEDS: levETIRAcetam 500 MG TABLET (FP) PO SCH (11:19)
[2023-08-30 12:00] LABS: POTASSIUM 4.1 mmol/L (3.5-5.1)
[2023-08-30 12:07] LABS: ALBUMIN 3.6 g/dl (3.4-5.0)
[2023-08-30 12:10] LABS: CREATININE 0.8 mg/dL (0.55-1.3)
[2023-08-30 12:11] LABS: BILIRUBIN,TOTAL 0.5 mg/dL (0.2-1); TOT PROT 7.2 g/dl (6.4-8.2)
[2023-08-30 12:18] LABS: HEMATOCRIT 40.1 % (35.4-49); HEMOGLOBIN 13.3 GM/dL (11.7-16.9); MCH 30.2 pg (25.7-33.7); MCHC 33.2 g/dl (32.0-35.9); MEAN PLT VOLUME 9.1 fl (7.5-11.1); PLATELET COUNT 309 10^3/uL (134-434); RDW 13.8 % (11.9-15.9); WHITE BLOOD COUNT 6.1 K/mm3 (4.0-10.0)
[2023-08-30 13:05] VITALS: TEMP 98
[2023-08-30 15:30] VITALS: BP 124/77; PULSE 74; RESP 14
[2023-08-30] MEDS ORDERED: LACTULOSE 20 GM/30 ML UDC (FOR ORAL USE ONLY) PO SCH (22:00)
[2023-09-01] MEDS ORDERED: methaDONE HCL 10 MG TABLET (FOR DETOX USE ONLY) PO ONE (10:00)
[2023-09-03] MEDS ORDERED: methaDONE HCL 10 MG TABLET (FOR DETOX USE ONLY) PO ONE (10:00)
== END 2023-08-30 23:09 | disposition short-term general hospital (02) | DRG 773 ==
LOC: YASAS 10:48 → Y3N 12:54
PROVIDERS: ADMIT Allergy & Immunology; ATTEND Surgery
PROC: HZ2ZZZZ Detoxification Services for Substance Abuse Treatment (ICD-10-PCS; principal; 2023-08-29)
DX: F11.23 Opioid dependence with withdrawal (principal); F14.20 Cocaine dependence, uncomplicated; B20 Human immunodeficiency virus [HIV] disease; E72.20 Disorder of urea cycle metabolism, unspecified; R41.82 Altered mental status, unspecified; Z86.19 Personal history of other infectious and parasitic diseases; Z86.69 Personal history of other diseases of the nervous system and sense organs; Z87.820 Personal history of traumatic brain injury
CPT/HCPCS: 36415; 80053; 80305; 80307; 82140; 85027; 86593; 86780; 93005; 93010

== ENCOUNTER 2023-08-30 16:04 | Observation (INO) | payer OTHER ==
[2023-08-30 17:35] LABS: BASO % 0.7 % (0-2.0); EOS % 1.7 % (0-4.5); HEMATOCRIT 36.7 % (35.4-49); HEMOGLOBIN 12.1 GM/dL (11.7-16.9); LYMPH % 16.7 % (8-40); MCH 30.1 pg (25.7-33.7); MEAN CELL VOLUME 91.1 fl (80-96); MEAN PLT VOLUME 8.1 fl (7.5-11.1); NEUT % 73.9 % (42.8-82.8); PLATELET COUNT 303 10^3/uL (134-434); RBC 4.03 M/mm3 (4.00-5.60); RDW 13.9 % (11.9-15.9); WHITE BLOOD COUNT 8.2 K/mm3 (4.0-10.0)
[2023-08-30 18:00] LABS: CHLORIDE 106 mmol/L (98-107); POTASSIUM 4.1 mmol/L (3.5-5.1); SODIUM 138 mmol/L (136-145)
[2023-08-30 18:03] LABS: ALBUMIN 3.3 g/dl (3.4-5.0); CALCIUM 8.9 mg/dL (8.5-10.1)
[2023-08-30 18:04] LABS: ANION GAP 4 mmol/L (4-13); BLOOD UREA NITROGEN 20.1 mg/dL (7-18); CO2 29 mmol/L (21-32); GLUCOSE,RANDOM 98 mg/dL (74-106)
[2023-08-30 18:06] LABS: CREATININE 0.9 mg/dL (0.55-1.3)
[2023-08-30 18:07] LABS: SGOT/AST 18 U/L (15-37); SGPT/ALT 57 U/L (13-61)
[2023-08-30 18:08] LABS: BILIRUBIN,TOTAL 0.2 mg/dL (0.2-1); TOT PROT 6.6 g/dl (6.4-8.2)
[2023-08-30 18:09] LABS: ALK PHOS 83 U/L (45-117)
[2023-08-30] MEDS: LACTATED RINGERS SOLUTION 1,000 ML/1,000 ML INFUS.BAG IV STA (18:44)
[2023-08-30] MEDS ORDERED: BENZONATATE 200 MG CAPSULE PO PRN (21:23)
[2023-08-30] MEDS ORDERED: MAG HYDROX/AL HYDROX/SIMETH 30 ML UNIT-DOSE CUP PO PRN (21:23)
[2023-08-30] MEDS ORDERED: POLYETHYLENE GLYCOL (HEALTHYLAX) 3350 17 GM PACKET PO PRN (21:23)
[2023-08-30] MEDS ORDERED: MAGNESIUM HYDROX 2400MG/30ML ORAL SUSPENSION 30 ML CUP PO PRN (21:23)
[2023-08-30] MEDS ORDERED: METHOCARBAMOL 500 MG TABLET PO PRN (21:23)
[2023-08-30] MEDS ORDERED: ACETAMINOPHEN 325 MG TABLET (FP) PO PRN (21:23)
[2023-08-30] MEDS ORDERED: NALOXONE HCL 0.4 MG/ML VIAL IM PRN (21:23)
[2023-08-30] MEDS ORDERED: IBUPROFEN 600 MG TABLET (FP) PO PRN (21:23)
[2023-08-30] MEDS ORDERED: hydrOXYzine PAMOATE 25 MG CAPSULE (FP) PO PRN (21:23)
[2023-08-30] MEDS ORDERED: ONDANSETRON *ODT* 4 MG TABLET SL PRN (21:23)
[2023-08-30] MEDS ORDERED: LOPERAMIDE HCL 2 MG CAPSULE PO PRN (21:23)
[2023-08-30] MEDS ORDERED: IBUPROFEN 400 MG TABLET (FP) PO PRN (21:23)
[2023-08-30] MEDS ORDERED: BISMUTH SUBSALICYLATE 524 MG/30 ML PO PRN (21:23)
[2023-08-30] MEDS ORDERED: DICYCLOMINE HCL 10 MG CAPSULE PO PRN (21:23)
[2023-08-30] MEDS ORDERED: guaiFENesin 600 MG TABLET.ER (FP) PO PRN (21:23)
[2023-08-30] MEDS ORDERED: BENZOCAINE/MENTHOL (CHLORASEPTIC ) LOZENGE MM PRN (21:23)
[2023-08-30] MEDS ORDERED: ALBUTEROL SO4 HFA INHALER IH PRN (21:39)
[2023-08-30] MEDS ORDERED: METOCLOPRAMIDE HCL INJECTION 10 MG/2 ML VIAL IM PRN (21:52)
[2023-08-30] MEDS ORDERED: hydrOXYzine HCL 50 MG/ML VIAL IM ONE (21:57)
[2023-08-30] MEDS: hydrOXYzine HCL 50 MG/ML VIAL IM ONE (22:08)
[2023-08-30] MEDS: METOCLOPRAMIDE HCL INJECTION 10 MG/2 ML VIAL IM ONE (22:08)
[2023-08-30] MEDS: BICTEGRAV/EMTRICIT/TENOFOV (BIKTARVY) 50-200-25 MG TABLET PO SCH (22:08)
[2023-08-30] MEDS ORDERED: MELATONIN 5 MG TABLETS ONE (22:10)
[2023-08-30] MEDS: THIAMINE 100 MG TABLET PO SCH (22:25)
[2023-08-30] MEDS: levETIRAcetam 500 MG TABLET (FP) PO SCH (22:25)
[2023-08-30] MEDS: MELATONIN 5 MG TABLETS PO SCH (22:25)
[2023-08-30] MEDS: hydrOXYzine HCL 50 MG/ML VIAL IM PRN (22:45)
[2023-08-31 05:01] VITALS: BMI 25.4
[2023-08-31] MEDS ORDERED: ASPIRIN 81 MG CHEWABLE TABLETS ONE (05:18)
[2023-08-31] MEDS: ASPIRIN 81 MG CHEWABLE TABLETS PO ONE (05:19)
[2023-08-31 07:23] LABS: HEMATOCRIT 39.7 % (35.4-49); HEMOGLOBIN 13.2 GM/dL (11.7-16.9); MCH 30.4 pg (25.7-33.7); MCHC 33.3 g/dl (32.0-35.9); MEAN CELL VOLUME 91.2 fl (80-96); MEAN PLT VOLUME 8.1 fl (7.5-11.1); PLATELET COUNT 306 10^3/uL (134-434); RBC 4.35 M/mm3 (4.00-5.60); RDW 13.8 % (11.9-15.9); WHITE BLOOD COUNT 8.3 K/mm3 (4.0-10.0)
[2023-08-31 07:52] LABS: CHOLESTEROL 171 mg/dL (50-200)
[2023-08-31 07:53] LABS: LDL CHOLESTEROL (ONLY SJRH) 103 mg/dL (5-100)
[2023-08-31 07:54] LABS: POTASSIUM 3.9 mmol/L (3.5-5.1)
[2023-08-31 07:55] LABS: HDL CHOLESTEROL 55 mg/dL (40-60)
[2023-08-31 08:10] LABS: CALCIUM 9.3 mg/dL (8.5-10.1)
[2023-08-31 08:11] LABS: ALBUMIN 3.6 g/dl (3.4-5.0); BLOOD UREA NITROGEN 21.2 mg/dL (7-18); MAGNESIUM 2.1 mg/dL (1.8-2.4)
[2023-08-31 08:14] LABS: CREATININE 0.8 mg/dL (0.55-1.3); PHOSPHOROUS 3.4 mg/dL (2.5-4.9)
[2023-08-31 08:16] LABS: TOT PROT 6.9 g/dl (6.4-8.2)
[2023-08-31 08:17] LABS: BILIRUBIN,TOTAL 0.4 mg/dL (0.2-1)
[2023-08-31] MEDS: ASPIRIN 81 MG CHEWABLE TABLETS PO SCH (10:37)
[2023-08-31] MEDS: methaDONE HCL 10 MG TABLET PO ONE (10:38)
[2023-08-31] MEDS: ENOXAPARIN NA (PORCINE) 40 MG/0.4 ML DISP.SYRIN SQ SCH (10:39)
[2023-08-31] MEDS: cloNIDine HCL 0.1 MG TABLET PO PRN (10:40)
[2023-08-31] MEDS: PRENATAL VITAMINS W/ FOLIC ACID TABLET (FP) PO SCH (12:05)
[2023-08-31] MEDS: LORazepam 1 MG TABLET PO ONE (12:07)
[2023-08-31] MEDS ORDERED: guaiFENesin 600 MG TABLET.ER (FP) PO PRN (12:52)
[2023-08-31] MEDS ORDERED: hydrOXYzine HCL 50 MG/ML VIAL IM PRN (12:52)
[2023-08-31] MEDS ORDERED: METOCLOPRAMIDE HCL INJECTION 10 MG/2 ML VIAL IM PRN (12:52)
[2023-08-31] MEDS ORDERED: LOPERAMIDE HCL 2 MG CAPSULE PO PRN (12:52)
[2023-08-31] MEDS ORDERED: BISMUTH SUBSALICYLATE 524 MG/30 ML PO PRN (12:52)
[2023-08-31] MEDS ORDERED: IBUPROFEN 400 MG TABLET (FP) PO PRN (12:52)
[2023-08-31] MEDS ORDERED: METHOCARBAMOL 500 MG TABLET PO PRN (12:52)
[2023-08-31] MEDS ORDERED: BENZOCAINE/MENTHOL (CHLORASEPTIC ) LOZENGE MM PRN (12:52)
[2023-08-31] MEDS ORDERED: DICYCLOMINE HCL 10 MG CAPSULE PO PRN (12:52)
[2023-08-31] MEDS ORDERED: MAGNESIUM HYDROX 2400MG/30ML ORAL SUSPENSION 30 ML CUP PO PRN (12:52)
[2023-08-31] MEDS ORDERED: ONDANSETRON *ODT* 4 MG TABLET SL PRN (12:52)
[2023-08-31] MEDS ORDERED: IBUPROFEN 600 MG TABLET (FP) PO PRN (12:52)
[2023-08-31] MEDS ORDERED: cloNIDine HCL 0.1 MG TABLET PO PRN (12:52)
[2023-08-31] MEDS ORDERED: ACETAMINOPHEN 325 MG TABLET (FP) PO PRN (12:52)
[2023-08-31] MEDS ORDERED: ALBUTEROL SO4 HFA INHALER IH PRN (12:52)
[2023-08-31] MEDS ORDERED: POLYETHYLENE GLYCOL (HEALTHYLAX) 3350 17 GM PACKET PO PRN (12:52)
[2023-08-31] MEDS ORDERED: MAG HYDROX/AL HYDROX/SIMETH 30 ML UNIT-DOSE CUP PO PRN (12:52)
[2023-08-31] MEDS ORDERED: BENZONATATE 200 MG CAPSULE PO PRN (12:52)
[2023-08-31] MEDS ORDERED: NALOXONE HCL 0.4 MG/ML VIAL IM PRN (12:52)
[2023-08-31] MEDS: levETIRAcetam 500 MG TABLET (FP) PO SCH (21:36)
[2023-08-31] MEDS: ATORVASTATIN CA 80 MG TABLET (FP) PO SCH (21:37)
[2023-08-31] MEDS: MELATONIN 5 MG TABLETS PO SCH (21:37)
[2023-08-31] MEDS: THIAMINE HCL 200 MG/2 ML VIAL IVPB SCH (21:41)
[2023-08-31] MEDS: THIAMINE 100 MG TABLET PO ONE (22:00)
[2023-08-31] MEDS ORDERED: THIAMINE 100 MG TABLET PO SCH (22:00)
[2023-09-01] MEDS: THIAMINE 100 MG TABLET PO SCH (03:21)
[2023-09-01] MEDS: THIAMINE HCL 200 MG/2 ML VIAL IM SCH ×2 (03:40→10:19)
[2023-09-01 07:12] VITALS: TEMP 97.5
[2023-09-01] MEDS: BICTEGRAV/EMTRICIT/TENOFOV (BIKTARVY) 50-200-25 MG TABLET PO SCH (10:13)
[2023-09-01] MEDS: PRENATAL VITAMINS W/ FOLIC ACID TABLET (FP) PO SCH (10:13)
[2023-09-01] MEDS: ENOXAPARIN NA (PORCINE) 40 MG/0.4 ML DISP.SYRIN SQ SCH (10:16)
[2023-09-01 11:15] LABS: HEMATOCRIT 38.6 % (35.4-49); HEMOGLOBIN 13.3 GM/dL (11.7-16.9); MCHC 34.4 g/dl (32.0-35.9); MEAN CELL VOLUME 90.1 fl (80-96); MEAN PLT VOLUME 7.9 fl (7.5-11.1); PLATELET COUNT 321 10^3/uL (134-434); RBC 4.28 M/mm3 (4.00-5.60); RDW 13.8 % (11.9-15.9); WHITE BLOOD COUNT 6.1 K/mm3 (4.0-10.0)
[2023-09-01 11:42] LABS: POTASSIUM 4.1 mmol/L (3.5-5.1)
[2023-09-01 11:44] LABS: ALBUMIN 3.6 g/dl (3.4-5.0); MAGNESIUM 1.9 mg/dL (1.8-2.4)
[2023-09-01 11:45] LABS: BLOOD UREA NITROGEN 16.7 mg/dL (7-18)
[2023-09-01 11:48] LABS: PHOSPHOROUS 3.1 mg/dL (2.5-4.9)
[2023-09-01 11:49] LABS: BILIRUBIN,TOTAL 0.4 mg/dL (0.2-1); TOT PROT 7.1 g/dl (6.4-8.2)
[2023-09-01 12:36] VITALS: BP 130/87; PULSE 66; RESP 18
[2023-09-02] MEDS ORDERED: methaDONE HCL 10 MG TABLET PO ONE ×2 (10:00)
== END 2023-09-01 13:01 | disposition left against medical advice (07) ==
LOC: JER 16:04 → INTOOBSV 19:23 → UNDOADMOB 19:23 → JERBED 19:23 → OBSVTOIN 19:23 → JERBED 20:52 → J7W 08-31 00:31 → JERBED 08-31 00:31 → J7W 08-31 02:39 → J4W 08-31 02:39 → J8W 08-31 18:20 → J4W 08-31 18:20
PROVIDERS: ADMIT Internal Medicine; ATTEND Nurse Practitioner Acute Care
PROC: 3E023GC Introduction of Other Therapeutic Substance into Muscle, Percutaneous Approach (ICD-10-PCS; principal; 2023-08-30)
PROC: 3E0337Z Introduction of Electrolytic and Water Balance Substance into Peripheral Vein, Percutaneous Approach (ICD-10-PCS; 2023-08-30)
DX: R41.82 Altered mental status, unspecified (principal); G92.8 Other toxic encephalopathy; F19.10 Other psychoactive substance abuse, uncomplicated; R56.9 Unspecified convulsions; B20 Human immunodeficiency virus [HIV] disease; A53.9 Syphilis, unspecified; B19.20 Unspecified viral hepatitis C without hepatic coma
CPT/HCPCS: 36415; 70450-TC; 71046-TC-FY; 80053; 80061; 80177; 80307; 82140; 82550; 82962; 83036; 83605; 83735; 84100; 84484; 85025; 85027; 85379; 86359; 86360; 87536; 93005; 93010; 96360; 96372; 99285-25; G0378

== ENCOUNTER 2023-09-01 13:09 | Emergency (ER) | payer OTHER ==
[2023-09-01 13:26] VITALS: BP 115/69; PULSE 82; RESP 18; TEMP 98.3; BMI 24.3
== END 2023-09-01 18:18 | disposition home or self-care (01) ==
LOC: JER 13:09
DX: R45.851 Suicidal ideations (principal)
CPT/HCPCS: 99282-25

== ENCOUNTER 2023-11-22 13:11 | Inpatient (IN) | payer OTHER ==
[2023-11-22 13:48] VITALS: BMI 23.6
[2023-11-22] MEDS ORDERED: guaiFENesin 600 MG TABLET.ER (FP) PO PRN (14:14)
[2023-11-22] MEDS ORDERED: POLYETHYLENE GLYCOL (HEALTHYLAX) 3350 17 GM PACKET PO PRN (14:14)
[2023-11-22] MEDS ORDERED: BENZONATATE 200 MG CAPSULE PO PRN (14:14)
[2023-11-22] MEDS ORDERED: MAG HYDROX/AL HYDROX/SIMETH 30 ML UNIT-DOSE CUP PO PRN (14:14)
[2023-11-22] MEDS ORDERED: BENZOCAINE/MENTHOL (CHLORASEPTIC ) LOZENGE MM PRN (14:14)
[2023-11-22] MEDS ORDERED: ACETAMINOPHEN 325 MG TABLET (FP) PO PRN (14:14)
[2023-11-22] MEDS ORDERED: hydrOXYzine PAMOATE 25 MG CAPSULE (FP) PO PRN (14:14)
[2023-11-22] MEDS ORDERED: MAGNESIUM HYDROX 2400MG/30ML ORAL SUSPENSION 30 ML CUP PO PRN (14:14)
[2023-11-22] MEDS ORDERED: NALOXONE (NARCAN) HCL 4 MG/0.1 ML SPRAY NS PRN (14:14)
[2023-11-22] MEDS ORDERED: IBUPROFEN 400 MG TABLET (FP) PO PRN (14:14)
[2023-11-22] MEDS ORDERED: LOPERAMIDE HCL 2 MG CAPSULE PO PRN (14:14)
[2023-11-22] MEDS ORDERED: NALOXONE HCL 0.4 MG/ML VIAL IM PRN (14:14)
[2023-11-22] MEDS ORDERED: IBUPROFEN 600 MG TABLET (FP) PO PRN (14:14)
[2023-11-22] MEDS ORDERED: ALBUTEROL SO4 HFA INHALER IH PRN (14:17)
[2023-11-22] MEDS: PRENATAL VITAMINS W/ FOLIC ACID TABLET (FP) PO SCH (15:50)
[2023-11-22] MEDS: levETIRAcetam 500 MG TABLET (FP) PO SCH (21:49)
[2023-11-22] MEDS: MELATONIN 5 MG TABLETS PO SCH (21:49)
[2023-11-22] MEDS: THIAMINE 100 MG TABLET PO SCH (21:49)
[2023-11-23] MEDS: BICTEGRAV/EMTRICIT/TENOFOV (BIKTARVY) 50-200-25 MG TABLET PO SCH (07:11)
[2023-11-23 13:53] LABS: HEMATOCRIT 41.9 % (35.4-49); HEMOGLOBIN 13.8 GM/dL (11.7-16.9); MCH 29.2 pg (25.7-33.7); MCHC 32.9 g/dl (32.0-35.9); MEAN CELL VOLUME 88.8 fl (80-96); MEAN PLT VOLUME 9.1 fl (7.5-11.1); PLATELET COUNT 317 10^3/uL (134-434); RBC 4.72 M/mm3 (4.00-5.60); RDW 14.6 % (11.9-15.9); WHITE BLOOD COUNT 5.4 K/mm3 (4.0-10.0)
[2023-11-23 14:57] LABS: POTASSIUM 3.9 mmol/L (3.5-5.1)
[2023-11-23 15:07] LABS: ALBUMIN 3.5 g/dl (3.4-5.0); CALCIUM 9.1 mg/dL (8.5-10.1)
[2023-11-23 15:08] LABS: BLOOD UREA NITROGEN 26.3 mg/dL (7-18)
[2023-11-23 15:11] LABS: CREATININE 0.9 mg/dL (0.55-1.3)
[2023-11-23 15:12] LABS: BILIRUBIN,TOTAL 0.5 mg/dL (0.2-1); TOT PROT 6.7 g/dl (6.4-8.2)
[2023-11-23 15:38] LABS: SYPHILIS W/ RPR CONF REACTIVE (NONREACTIVE)
[2023-11-24 06:39] VITALS: BP 144/93; PULSE 73; RESP 20; TEMP 97.3
== END 2023-11-24 11:15 | disposition left against medical advice (07) | DRG 770 ==
LOC: YASAS 13:11 → Y3NR 15:31 → Y3E 11-23 10:56
PROVIDERS: ADMIT Psychiatry & Neurology Pain Medicine; ATTEND Psychiatry & Neurology Pain Medicine
PROC: HZ42ZZZ Group Counseling for Substance Abuse Treatment, Cognitive-Behavioral (ICD-10-PCS; principal; 2023-11-22)
DX: F14.20 Cocaine dependence, uncomplicated (principal); F11.20 Opioid dependence, uncomplicated; F25.9 Schizoaffective disorder, unspecified; Z21 Asymptomatic human immunodeficiency virus [HIV] infection status; G40.909 Epilepsy, unspecified, not intractable, without status epilepticus; Z86.19 Personal history of other infectious and parasitic diseases
CPT/HCPCS: 36415; 80053; 80177; 80305; 80307; 85027; 86593; 86780; 86803; 87522; 87811; 93005; 93010

== ENCOUNTER 2024-01-18 13:47 | Inpatient (IN) | payer OTHER ==
[2024-01-18 14:42] VITALS: BMI 22.7
[2024-01-18] MEDS ORDERED: LOPERAMIDE HCL 2 MG CAPSULE PO PRN (16:17)
[2024-01-18] MEDS ORDERED: POLYETHYLENE GLYCOL (HEALTHYLAX) 3350 17 GM PACKET PO PRN (16:17)
[2024-01-18] MEDS ORDERED: MAGNESIUM HYDROX 2400MG/30ML ORAL SUSPENSION 30 ML CUP PO PRN (16:17)
[2024-01-18] MEDS ORDERED: MAG HYDROX/AL HYDROX/SIMETH 30 ML UNIT-DOSE CUP PO PRN (16:17)
[2024-01-18] MEDS ORDERED: guaiFENesin 600 MG TABLET.ER (FP) PO PRN (16:17)
[2024-01-18] MEDS ORDERED: NALOXONE (NARCAN) HCL 4 MG/0.1 ML SPRAY NS PRN (16:17)
[2024-01-18] MEDS ORDERED: IBUPROFEN 600 MG TABLET (FP) PO PRN (16:17)
[2024-01-18] MEDS ORDERED: ACETAMINOPHEN 325 MG TABLET (FP) PO PRN (16:17)
[2024-01-18] MEDS ORDERED: BENZONATATE 200 MG CAPSULE PO PRN (16:17)
[2024-01-18] MEDS ORDERED: IBUPROFEN 400 MG TABLET (FP) PO PRN (16:17)
[2024-01-18] MEDS ORDERED: BENZOCAINE/MENTHOL (CHLORASEPTIC ) LOZENGE MM PRN (16:17)
[2024-01-18] MEDS ORDERED: ALBUTEROL SO4 HFA INHALER IH PRN (16:19)
[2024-01-18] MEDS: PRENATAL VITAMINS W/ FOLIC ACID TABLET (FP) PO SCH (18:41)
[2024-01-18] MEDS: levETIRAcetam 500 MG TABLET (FP) PO SCH (22:01)
[2024-01-18] MEDS: THIAMINE 100 MG TABLET PO SCH (22:01)
[2024-01-18] MEDS: MELATONIN 5 MG TABLETS PO SCH (22:02)
[2024-01-19] MEDS: BICTEGRAV/EMTRICIT/TENOFOV (BIKTARVY) 50-200-25 MG TABLET PO SCH (07:24)
[2024-01-19] MEDS ORDERED: TUBERCULIN PPD 5 TU/0.1ML VIAL ID ONE (11:51)
[2024-01-19 12:48] LABS: HEMATOCRIT 40.4 % (35.4-49); HEMOGLOBIN 13.2 GM/dL (11.7-16.9); MCH 29.4 pg (25.7-33.7); MCHC 32.7 g/dl (32.0-35.9); MEAN CELL VOLUME 89.8 fl (80-96); MEAN PLT VOLUME 8.4 fl (7.5-11.1); PLATELET COUNT 279 10^3/uL (134-434); RDW 14.5 % (11.9-15.9); WHITE BLOOD COUNT 5.8 K/mm3 (4.0-10.0)
[2024-01-19 13:00] LABS: POTASSIUM 4.3 mmol/L (3.5-5.1)
[2024-01-19 13:28] LABS: SYPHILIS W/ RPR CONF REACTIVE (NONREACTIVE)
[2024-01-19 13:36] LABS: CALCIUM 8.7 mg/dL (8.5-10.1)
[2024-01-19 13:37] LABS: ALBUMIN 3.2 g/dl (3.4-5.0); BLOOD UREA NITROGEN 15.4 mg/dL (7-18)
[2024-01-19 13:40] LABS: CREATININE 0.8 mg/dL (0.55-1.3)
[2024-01-19 13:41] LABS: BILIRUBIN,TOTAL 0.4 mg/dL (0.2-1)
[2024-01-20] MEDS: BICTEGRAV/EMTRICIT/TENOFOV (BIKTARVY) 50-200-25 MG TABLET PO SCH (07:11)
[2024-01-20 17:34] LABS: PH,URINE 5.5 (5.0-8.0); URINE APPEARANCE CLEAR; URINE BILIRUBIN NEGATIVE (NEGATIVE); URINE COLOR YELLOW; URINE GLUCOSE (UA) NEGATIVE (NEGATIVE); URINE KETONE NEGATIVE (NEGATIVE); URINE LEUK ESTERASE NEGATIVE (NEGATIVE); URINE NITRITE NEGATIVE (NEGATIVE); URINE PROTEIN NEGATIVE (NEGATIVE); URINE UROBILINOGEN 0.2 mg/dL (0.2-1.0)
[2024-01-22] MEDS: hydrOXYzine PAMOATE 25 MG CAPSULE (FP) PO PRN (18:31)
[2024-01-23] MEDS: BACLOFEN 10 MG TABLET (FP) PO SCH (21:06)
[2024-01-28 06:45] VITALS: PULSE 62; RESP 16; TEMP 97.7
[2024-01-28] MEDS: NALOXONE (NYS OPIOID OVERDOSE PROGRAM) 4 MG/0.1 ML SPRAY NS SCH (07:03)
[2024-01-28 07:18] VITALS: BP 104/69
== END 2024-01-28 07:05 | disposition home or self-care (01) | DRG 774 ==
LOC: YASAS 13:47 → Y5N 18:14
PROVIDERS: ADMIT Psychiatry & Neurology Pain Medicine; ATTEND Psychiatry & Neurology Pain Medicine
PROC: HZ42ZZZ Group Counseling for Substance Abuse Treatment, Cognitive-Behavioral (ICD-10-PCS; principal; 2024-01-18)
DX: F14.10 Cocaine abuse, uncomplicated (principal); F17.210 Nicotine dependence, cigarettes, uncomplicated; F25.9 Schizoaffective disorder, unspecified; Z21 Asymptomatic human immunodeficiency virus [HIV] infection status; B18.2 Chronic viral hepatitis C
CPT/HCPCS: 36415; 80053; 80305; 80307; 81003; 85027; 86593; 86780; 86803; 87522; 93005; 93010; J0475

== ENCOUNTER 2024-03-13 11:48 | Inpatient (IN) | payer OTHER ==
[2024-03-13 12:18] VITALS: BMI 25.2
[2024-03-13] MEDS ORDERED: NICOTINE POLACRILEX 2 MG GUM BUC PRN (13:34)
[2024-03-13] MEDS ORDERED: NICOTINE POLACRILEX 2 MG LOZENGE BC PRN (13:34)
[2024-03-13] MEDS ORDERED: ACETAMINOPHEN 325 MG TABLET (FP) PO PRN (13:34)
[2024-03-13] MEDS ORDERED: BENZOCAINE/MENTHOL (CHLORASEPTIC ) LOZENGE MM PRN (13:34)
[2024-03-13] MEDS ORDERED: LOPERAMIDE HCL 2 MG CAPSULE PO PRN (13:34)
[2024-03-13] MEDS ORDERED: MAGNESIUM HYDROX 2400MG/30ML ORAL SUSPENSION 30 ML CUP PO PRN (13:34)
[2024-03-13] MEDS ORDERED: BENZONATATE 200 MG CAPSULE PO PRN (13:34)
[2024-03-13] MEDS ORDERED: IBUPROFEN 400 MG TABLET (FP) PO PRN (13:34)
[2024-03-13] MEDS ORDERED: hydrOXYzine PAMOATE 25 MG CAPSULE (FP) PO PRN (13:34)
[2024-03-13] MEDS ORDERED: guaiFENesin 600 MG TABLET.ER (FP) PO PRN (13:34)
[2024-03-13] MEDS ORDERED: NALOXONE (NARCAN) HCL 4 MG/0.1 ML SPRAY NS PRN (13:34)
[2024-03-13] MEDS ORDERED: POLYETHYLENE GLYCOL (HEALTHYLAX) 3350 17 GM PACKET PO PRN (13:34)
[2024-03-13] MEDS: levETIRAcetam 500 MG TABLET (FP) PO SCH (15:00)
[2024-03-13] MEDS ORDERED: levETIRAcetam 500 MG TABLET (FP) PO ONE (15:14)
[2024-03-13] MEDS ORDERED: BACITRACIN ZINC 15 GM TUBE TOPICAL OINTMENT TP PRN (20:01)
[2024-03-13] MEDS: BACITRACIN 0.9 GM PACKET TP PRN (21:41)
[2024-03-13] MEDS: MELATONIN 5 MG TABLETS PO SCH (21:41)
[2024-03-13] MEDS: THIAMINE 100 MG TABLET PO SCH (21:41)
[2024-03-13] MEDS: IBUPROFEN 600 MG TABLET (FP) PO PRN (22:07)
[2024-03-14 08:06] LABS: URINE APPEARANCE CLEAR; URINE BILIRUBIN NEGATIVE (NEGATIVE); URINE COLOR YELLOW; URINE GLUCOSE (UA) NEGATIVE (NEGATIVE); URINE KETONE TRACE (NEGATIVE); URINE LEUK ESTERASE NEGATIVE (NEGATIVE); URINE NITRITE NEGATIVE (NEGATIVE); URINE PROTEIN NEGATIVE (NEGATIVE); URINE UROBILINOGEN 0.2 mg/dL (0.2-1.0)
[2024-03-14] MEDS: PRENATAL VITAMINS W/ FOLIC ACID TABLET (FP) PO SCH (10:26)
[2024-03-14 12:30] LABS: HEMATOCRIT 42.5 % (35.4-49); MCH 29.4 pg (25.7-33.7); MCHC 33.1 g/dl (32.0-35.9); MEAN PLT VOLUME 8.6 fl (7.5-11.1); PLATELET COUNT 352 10^3/uL (134-434); RBC 4.77 M/mm3 (4.00-5.60); RDW 14.4 % (11.9-15.9); WHITE BLOOD COUNT 5.1 K/mm3 (4.0-10.0)
[2024-03-14 12:33] LABS: CHLORIDE 107 mmol/L (98-107); POTASSIUM 4.5 mmol/L (3.5-5.1); SODIUM 138 mmol/L (136-145)
[2024-03-14 12:42] LABS: CALCIUM 9.1 mg/dL (8.5-10.1)
[2024-03-14 12:43] LABS: ALBUMIN 3.5 g/dl (3.4-5.0); ANION GAP 6 mmol/L (4-13); BLOOD UREA NITROGEN 21.2 mg/dL (7-18); CO2 25 mmol/L (21-32); GLUCOSE,RANDOM 103 mg/dL (74-106)
[2024-03-14 12:46] LABS: CREATININE 0.8 mg/dL (0.55-1.3); SGOT/AST 23 U/L (15-37)
[2024-03-14 12:47] LABS: BILIRUBIN,TOTAL 1.2 mg/dL (0.2-1); SGPT/ALT 29 U/L (13-61)
[2024-03-14 12:48] LABS: ALK PHOS 85 U/L (45-117)
[2024-03-16] MEDS: BICTEGRAV/EMTRICIT/TENOFOV (BIKTARVY) 50-200-25 MG TABLET PO SCH (14:46)
[2024-03-20] MEDS: MAG HYDROX/AL HYDROX/SIMETH 30 ML UNIT-DOSE CUP PO PRN (06:06)
[2024-03-22 06:47] VITALS: RESP 16
[2024-03-23 07:06] VITALS: TEMP 97.5
[2024-03-23 15:03] VITALS: BP 126/77; PULSE 85
== END 2024-03-23 22:00 | disposition home or self-care (01) | DRG 772 ==
LOC: YASAS 11:48 → Y3NR 15:09 → Y3W 03-15 10:29
PROVIDERS: ADMIT Psychiatry & Neurology Pain Medicine; ATTEND Psychiatry & Neurology Pain Medicine
PROC: HZ42ZZZ Group Counseling for Substance Abuse Treatment, Cognitive-Behavioral (ICD-10-PCS; principal; 2024-03-13)
DX: F14.20 Cocaine dependence, uncomplicated (principal); F11.10 Opioid abuse, uncomplicated; F17.210 Nicotine dependence, cigarettes, uncomplicated; F25.9 Schizoaffective disorder, unspecified; F41.8 Other specified anxiety disorders; B20 Human immunodeficiency virus [HIV] disease; G40.909 Epilepsy, unspecified, not intractable, without status epilepticus; Z87.820 Personal history of traumatic brain injury; Z79.899 Other long term (current) drug therapy; Z86.19 Personal history of other infectious and parasitic diseases; Z59.01 Sheltered homelessness; Z91.81 History of falling
CPT/HCPCS: 36415; 80053; 80305; 80307; 81003; 85027; 86593; 86780; 87811

== ENCOUNTER 2024-03-23 16:04 | Emergency (ER) | payer OTHER ==
[2024-03-23 16:30] VITALS: BP 122/76; PULSE 82; RESP 18; TEMP 97.6; BMI 23.6
[2024-03-23] MEDS ORDERED: ACETAMINOPHEN 325 MG TABLET (FP) ONE (17:56)
[2024-03-23] MEDS: ACETAMINOPHEN 325 MG TABLET (FP) PO ONE (18:03)
== END 2024-03-23 22:02 | disposition home or self-care (01) ==
LOC: JER 16:04
DX: M54.50 Low back pain, unspecified (principal); G89.29 Other chronic pain
CPT/HCPCS: 70450-TC; 72100-TC-FY; 99284-25